=== PATIENT | male | born 1970 | race Caucasian/White ===

== ENCOUNTER 2017-01-16 04:44 | Emergency (ER) | payer MEDICAID ==
[~2017-01-16] VITALS: Ht 182.9 cm; Wt 99.4 kg
[2017-01-16 05:54] LABS: BLOOD UREA NITROGEN 19 mg/dL (7-18)
[2017-01-16] MEDS ORDERED: SODIUM CHLORIDE 0.9% 1,000ML IVBOLUS ONE (06:00)
[2017-01-16 07:00] LABS: HEMATOCRIT 44.9 % (39.2-51.8); HEMOGLOBIN 15.1 g/dL (13.7-18.0); WHITE BLOOD COUNT 7.4 x10^3/uL (3.4-10)
[2017-01-16 07:42] VITALS: BP 137/91
== END 2017-01-16 08:15 | disposition home or self-care (01) ==
LOC: ED 05:41
DX: L03.115 Cellulitis of right lower limb (principal); M71.21 Synovial cyst of popliteal space [Baker], right knee
CPT/HCPCS: 36415; 80048; 82040; 85025; 93971; 96360; 96361; 99285; J7030